=== PATIENT | female | born 2000 | race Caucasian/White ===

== ENCOUNTER → 2022-04-19 15:54 | Outpatient (CLI) | payer BC, SELFPAY ==
--- NOTE | ~2022-04-19 | XR_ITS ---
XR hand LT 2V DATE: 04/19/2022 16:23 INDICATION: Left hand pain TECHNIQUE: AP and lateral views COMPARISON: None FINDINGS: No fracture, dislocation, periosteal reaction or bone destruction, erosive change, chondroc alcinosis or joint space narrowing. IMPRESSION: Negative Reviewed, dictated and finalized at location B. IMPRESSION: Negative
--- NOTE | ~2022-04-19 | XR_ITS ---
XR wrist RT 2V DATE: 04/19/2022 16:23 INDICATION: Right wrist pain TECHNIQUE: AP and lateral views COMPARISON: None FINDINGS: No fracture, dislocation, periosteal reaction or bone destruction, erosive change or chondr ocalcinosis or joint space narrowing. IMPRESSION: Negative Reviewed, dictated and finalized at location B. IMPRESSION: Negative
--- NOTE | ~2022-04-19 | XR_ITS ---
XR wrist LT 2V DATE: 04/19/2022 16:23 INDICATION: Left wrist pain TECHNIQUE: AP and lateral views COMPARISON: None FINDINGS: No fracture or dislocation, periosteal reaction or bone destruction, joint space narrowing, erosive change or chondrocalcinosis. IMPRESSION: Negative Reviewed, dictated and finalized at location B. IMPRESSION: Negative
--- NOTE | ~2022-04-19 | XR_ITS ---
XR ankle RT 2V DATE: 04/19/2022 16:23 INDICATION: Right ankle pain TECHNIQUE: AP and lateral views COMPARISON: None FINDINGS: No fracture or dislocation of the ankle or disruption of the ankle mortise. No periosteal r eaction or bone destruction. IMPRESSION: Negative Reviewed, dictated and finalized at location B. IMPRESSION: Negative
--- NOTE | ~2022-04-19 | XR_ITS ---
XR hand RT 2V DATE: 04/19/2022 16:23 INDICATION: Right hand pain TECHNIQUE: AP and lateral views COMPARISON: None FINDINGS: No fracture or dislocation, periosteal reaction or bone destruction, joint space narrowing, erosive change or chondrocalcinosis. IMPRESSION: Negative Reviewed, dictated and finalized at location B. IMPRESSION: Negative
--- NOTE | ~2022-04-19 | XR_ITS ---
XR foot LT 2V DATE: 04/19/2022 16:23 INDICATION: Left foot pain TECHNIQUE: AP and lateral views COMPARISON: None FINDINGS: No fracture, dislocation, periosteal reaction or bone destruction, erosive change or chondr ocalcinosis. Joint spaces are preserved. IMPRESSION: Negative Reviewed, dictated and finalized at location B. IMPRESSION: Negative
--- NOTE | ~2022-04-19 | XR_ITS ---
XR foot RT 2V DATE: 04/19/2022 16:23 INDICATION: Right foot pain TECHNIQUE: AP and lateral views COMPARISON: None FINDINGS: No fracture, dislocation, periosteal reaction or bone destruction, erosive change, chondroc alcinosis or joint space narrowing. IMPRESSION: Negative Reviewed, dictated and finalized at location B. IMPRESSION: Negative
--- NOTE | ~2022-04-19 | XR_ITS ---
XR sacroiliac joints min 3V DATE: 04/19/2022 16:23 INDICATION: Sacroiliac pain TECHNIQUE: AP and bilateral oblique views COMPARISON: None FINDINGS: No fracture, dislocation, erosive change or ankylosis of the sacroiliac joints. The pubic s ymphysis is intact. Hip joint spaces appear symmetric and well preserved. IUD overlies the pelvis. IMPRESSION: Negative sacroiliac joints Reviewed, dictated and finalized at Location A. Reviewed, dictated and finalized at location B. IMPRESSION: Negative sacroiliac joints
--- NOTE | ~2022-04-19 | XR_ITS ---
XR ankle LT 2V DATE: 04/19/2022 16:23 INDICATION: Left ankle pain TECHNIQUE: AP and lateral views COMPARISON: None FINDINGS: No fracture or dislocation of the ankle or disruption of the ankle mortise. No periosteal r eaction or bone destruction. IMPRESSION: Negative Reviewed, dictated and finalized at location B. IMPRESSION: Negative
== END ==
PROVIDERS: PCP Family Medicine; Visit Provider Nurse Practitioner Family
DX: M25.50 Pain in unspecified joint (principal); R53.81 Other malaise; M79.10 Myalgia, unspecified site
CPT/HCPCS: 72202; 73100; 73120; 73600; 73620